=== PATIENT | male | born 1975 | race Caucasian/White ===

== ENCOUNTER 2021-08-04 21:52 | Emergency (ER) | payer OTHER, SELFPAY ==
[2021-08-04 21:56] VITALS: BP 136/86; PULSE 97; RESP 18; TEMP 36.7; O2SAT 96; BMI 27.2
--- NOTE | 2021-08-04 22:55 | ECG_ITS ---
[facility] Test Date: 2021-08-04 Pat Name: Ifeanyi Stephens Department: Room: Gender: Male Collections Associate: : 1975 Requested By: Moncho Huston Order Number: [id number] Fabiola MD: Taryn Villeda M.D. Measurements Intervals [place] Rate: 94 P: 53 HI: 157 QRS: 34 QRSD: 87 T: 39 QT: 350 QTc: 439 Interpretive Statements SINUS RHYTHM NONSPECIFIC T-WAVE ABNORMALITY No previous ECG available for comparison Electronically Signed On 08-06-2021 12:42:02 [employer]STRUCTION SALES MANAGER by Taryn Villeda M.D. [id number]
--- NOTE | 2021-08-04 22:55 | XRR_ITS ---
PROCEDURE INFORMATION: Exam: XR Chest Exam date and time: 08/04/2021 10:55 PM Age: 45 years old Clinical indication: Pain; Left-sided; Patient HX: C/O L sided cp radiating to lue TECHNIQUE: Imaging protocol: XR of the chest. Views: 1 view. Total images: 1 COMPARISON: No relevant prior studies available. FINDINGS: Lungs: No visible active interstitial or alveolar airspace disease. Pleural spaces: Unremarkable. No pleural effusion. No pneumothorax. Heart/Mediastinum: Cardiac structures and configuration within normal limits. Bones/joints: Unremarkable. XR/XR chest 1V portable [id number] IMPRESSION: Nonacute. Radiation Dose CTDIVOL = (mGy): DLP = (mGy-cm)
[2021-08-04 22:58] VITALS: RESP 18; O2SAT 98
[2021-08-04] MEDS: morphine 4 mg/mL SDV 1 mL IVP (22:58)
[2021-08-04] MEDS: ondansetron 2 mg/ML SDV 2 mL 4 MG IVP (22:58)
[2021-08-04] MEDS: sodium chloride 0.9% 1,000 ML 999 ML IV (23:02)
[2021-08-04 23:10] LABS: Basophils % 0.6 %; Eosinophils # 0.1 10^3/uL (0.0-0.8); Eosinophils % 1.7 %; Hemoglobin 15.7 g/dL (11.7-16.6); Lymphocytes # 2.6 10^3/uL (0.8-4.8); Lymphocytes % 36.8 %; Mean Corpuscular HGB Conc 33.4 g/dL (30.0-36.0); Mean Corpuscular Hemoglobin 26.1 pg (28.0-34.0); Mean Corpuscular Volume 78.2 fl (80-94); Mean Platelet Volume 11.9 fL (7.4-10.4); Monocytes # 0.9 10^3/uL (0.2-0.9); Monocytes % 12.8 %; Neutrophils # 3.31 10^3/uL (1.8-7.7); Neutrophils % 47.8 %; Nucleated Red Blood Cells % 0 %; Platelet Count 238 10^3/cmm (130-400); Red Blood Count 6.01 10^6/uL (4.1-5.3); Red Cell Distribution Width 13.3 % (12.1-15.1); White Blood Count 6.9 10^3/uL (4.0-10.0)
[2021-08-04 23:32] LABS: D Dimer <= 0.27 ug/mIFEU (0-0.59)
[2021-08-04 23:36] LABS: Troponin(5th) Baseline 7 ng/L (0-15)
[2021-08-04 23:36] LABS: Add Urine Microscopic? YES; Bilirubin Urine Neg (Negative); Blood Urine 2+ (Negative); Glucose Urine UA Norm (Normal); Ketones Urine 1+ (Negative); Leukocyte Esterase Urine Negative (Negative); Nitrate Urine Negative (Negative); Protein Urine Neg (Negative); Urine Appearance Clear (CLEAR); Urine Color Yellow (Yellow); Urobilinogen Urine Norm (Negative); pH Urine 5 (5-7)
--- NOTE | 2021-08-04 23:43 | W.ED.BACK ---
HPI - Back Pain/Injury General: Chief Complaint: Back Pain/Injury Stated Complaint: CP Time Seen by Provider: 08/04/21 21:58 History of Present Illness: HPI Narrative: 45-year-old male presenting with left-sided chest/flank pain. He notes he was sitting resting, when he had sudden onset of left-sided chest pain radiating into his left arm. The pain then migrated towards his left flank/kidney area. The patient has a history of kidney stones, but this feels different than a kidney stone to him. Pain was worsened upon inspiration. No history of cardiac disease. Does have a history of hypertension. Pain is improved after administration of pain medication in the ambulance. MD elicited complaint: back pain Pertinent past history: kidney stones and other Onset (ago): hour(s) Timing: constant Severity: moderate Similar Symptoms Previously: No Quality: sharp Location: left flank Radiation: other (Left upper extremity) Relieving factors: none Context: history of kidney stones Associated symptoms: Reports nausea; Deny abdominal pain, difficulty walking, dysuria, fever(s), hematuria, numbness or tingling/numbness/burning Review of Systems Const: Denies: fever(s) Card: Reports: chest pain; Denies: palpitations Resp: Denies: dyspnea, productive cough or non-productive cough GI: Reports: nausea; Denies: abdominal pain : Denies: dysuria or hematuria Neuro: Denies: difficulty walking Physical Exam Const: COMMON NORMALS: no acute distress, patient oriented x3 and alert GENERAL APPEARANCE: cooperative HENMT: COMMON NORMALS: normocephalic HEAD & SCALP: normocephalic Eye: COMMON NORMALS: Equal, round and reactive pupils present and EOMs intact bilaterally PUPIL: Yes Equal, round and reactive pupils present Chest: COMMONS NORMALS: normal inspection of the chest Resp: COMMON NORMALS: normal respiratory effort, No use of accessory muscles and clear to auscultation bilaterally AUSCULTATION: clear to auscultation bilaterally Cardio: COMMON NORMALS: regular rate and regular rhythm RATE: regular rate RHYTHM: regular rhythm GI: COMMON NORMALS: Normal to inspection, nondistended, normoactive bowel sounds present and Soft to palpation PALPATION: Yes Soft to palpation Neuro: COMMON NORMALS: patient oriented x3 SENSORIUM/ORIENTATION: Yes alert Course Vital Signs: Vital signs: Vital Signs Temperature 98.1 F 08/04/21 21:56 Pulse Rate 97 08/04/21 21:56 Respiratory Rate 18 08/04/21 22:58 Blood Pressure 136/86 08/04/21 21:56 Pulse Oximetry 98 08/04/21 22:58 MDM - Back Pain/Injury MDM Narrative: Medical decision making narrative: 45-year-old male with left flank pain. It started in his chest. EKG shows a normal sinus rhythm with no acute ST changes. Normal intervals and axis. CBC is normal. Creatinine is 1.5. BMP is otherwise normal. Troponin is 7. D-dimer is nondetectable. Hematuria is present. CT renal stone of the abdomen pelvis shows multiple left renal stones, no hydronephrosis or ureteral stone. There is some bilateral fat stranding around the kidneys. No evidence of infection on urinalysis. His pain is much improved. I would favor a passed stone at the top of my differential. Lab Data: Labs: Lab Results 08/04/21 08/04/21 08/04/21 22:10 22:10 22:10 WBC 6.9 10^3/uL 10^3/ uL (4.0-10.0) RBC 6.01 10^6/uL H 10 ^6/uL (4.1-5.3) Hgb 15.7 g/dL g/dL (11.7-16.6) Hct 47.0 % % (42.0-52.0) MCV 78.2 fl L fl (80-94) MCH 26.1 pg L pg (28.0-34.0) MCHC 33.4 g/dL g/dL (30.0-36.0) RDW 13.3 % % (12.1-15.1) Plt Count 238 10^3/cmm 10^3 /cmm (130-400) MPV 11.9 fL H fL (7.4-10.4) Neut % (Auto) 47.8 % % Lymph % (Auto) 36.8 % % [place] % (Auto) 12.8 % % Eos % (Auto) 1.7 % % Baso % (Auto) 0.6 % % Neut # (Auto) 3.31 10^3/uL 10^3 /uL (1.8-7.7) Lymph # (Auto) 2.6 10^3/uL 10^3/ uL (0.8-4.8) [place] # (Auto) 0.9 10^3/uL 10^3/ uL (0.2-0.9) Eos # (Auto) 0.1 10^3/uL 10^3/ uL (0.0-0.8) Baso # (Auto) 0.0 10^3/uL 10^3/ uL (0.0-0.1) Nucleated RBC % (a uto) 0 % % Nucleated RBCs # 0.0 /100WBC /100W BC D-Dimer <= 0.27 ug/mIFEU ug/mIFEU (0-0.59) Sodium 142 mmol/L mmol/L (136-145) Potassium 3.5 mmol/L mmol/L (3.5-5.1) Chloride 104 mmol/L mmol/L (98-107) Carbon Dioxide 24 mmol/L mmol/L (22-29) Anion Gap 17.5 (5-19) BUN 16 mg/dL mg/dL (6-20) Creatinine 1.5 mg/dL H mg/dL (0.7-1.2) GFR Calculation 50.6 mL/min L mL/ min (90-130) Glucose 110 mg/dL mg/dL (65-115) Calculated Osmolal ity 296 mOsm/kg H mOs m/kg (285-295) Calcium 9.1 mg/dL mg/dL (8.5-10.5) Total Bilirubin 0.2 mg/dL mg/dL (0.15-1.2) AST 34 U/L U/L (0-40) ALT 60 U/L H U/L (0-41) Alkaline Phosphata se 60 IU/L IU/L (40-130) Creatine Kinase 73 U/L U/L (39-308) Troponin T Baselin e NT-Pro-B Natriuret Pep 8 pg/mL pg/mL (0-125) Total Protein 7.0 g/dL g/dL (6.6-8.7) Albumin 4.1 g/dL g/dL (3.5-5.2) Globulin 2.9 g/dL g/dL (1.3-4.6) Lipase 75 U/L H U/L (13-60) Urine Color Urine Appearance Urine pH Ur Specific Gravit y Urine Protein Urine Glucose (UA) Urine Ketones Urine Blood Urine Nitrate Urine Bilirubin Urine Urobilinogen Ur Leukocyte Haylie ase Urine RBC Urine WBC Ur Squamous Epith Cells Amorphous Sediment Urine Bacteria Ethyl Alcohol < 10 mg/dL mg/dL (0-10) 08/04/21 08/04/21 22:10 22:40 WBC RBC Hgb Hct MCV MCH MCHC RDW Plt Count MPV Neut % (Auto) Lymph % (Auto) [place] % (Auto) Eos % (Auto) Baso % (Auto) Neut # (Auto) Lymph # (Auto) [place] # (Auto) Eos # (Auto) Baso # (Auto) Nucleated RBC % (a uto) Nucleated RBCs # D-Dimer Sodium Potassium Chloride Carbon Dioxide Anion Gap BUN Creatinine GFR Calculation Glucose Calculated Osmolal ity Calcium Total Bilirubin AST ALT Alkaline Phosphata se Creatine Kinase Troponin T Baselin e 7 ng/L ng/L (0-15) NT-Pro-B Natriuret Pep Total Protein Albumin Globulin Lipase Urine Color Yellow (Yellow) Urine Appearance Clear (CLEAR) Urine pH 5 (5-7) Ur Specific Gravit y 1.020 (1.005-1.030) Urine Protein Neg (Negative) Urine Glucose (UA) Norm (Normal) Urine Ketones 1+ H (Negative) Urine Blood 2+ H (Negative) Urine Nitrate Negative (Negative) Urine Bilirubin Neg (Negative) Urine Urobilinogen Norm mg/dL mg/dL (Negative) Ur Leukocyte Haylie ase Negative (Negative) Urine RBC 10-15 /hpf H /hpf (0-2) Urine WBC 0-4 /hpf H /hpf (0-5) Ur Squamous Epith Cells 0-4 /hpf H /hpf (0-5) Amorphous Sediment Not Reportable Urine Bacteria Trace /hpf /hpf (NONE) Ethyl Alcohol Discharge Plan Discharge Patient Disposition: Home Clinical Impression: Renal colic Condition: Stable Discharge Orders: Discharge ED (Routine); Ordered 08/05/21 Ordered By: Moncho De La Rosa Discharge Diet: Advance as tolerated Discharge Activity: Increase activity as tolerated Patient Instructions: Renal Colic (ED), Opioid Safety Activity Restrictions/Additional Instructions: Return for return of or worsening pain, shortness of breath, pain to the chest, fever greater than 100, vomiting liquids or medications, any other concerning symptoms. Coding Level of Care Code ED Inside Meter Tester for Chg Fwd Exam Detailed
[2021-08-04 23:45] LABS: Alanine Aminotransferase 60 U/L (0-41); Albumin Level 4.1 g/dL (3.5-5.2); Alkaline Phosphatase 60 IU/L (40-130); Anion Gap 17.5 (5-19); Aspartate Amino Transferase 34 U/L (0-40); Blood Urea Nitrogen 16 mg/dL (6-20); Calcium 9.1 mg/dL (8.5-10.5); Carbon Dioxide 24 mmol/L (22-29); Chloride 104 mmol/L (98-107); Creatine Phosphokinase 73 U/L (39-308); Globulin 2.9 g/dL (1.3-4.6); Glomerular Filtration Rate 50.6 mL/min (90-130); Glucose 110 mg/dL (65-115); Lipase 75 U/L (13-60); NT Pro B Type Natriuretic Pept 8 pg/mL (0-125); Osmolality Calculated 296 mOsm/kg (285-295); Potassium 3.5 mmol/L (3.5-5.1); Sodium 142 mmol/L (136-145); Total Bilirubin 0.2 mg/dL (0.15-1.2)
[2021-08-04 23:46] LABS: Add Urine Culture? Yes; Bacteria Urine TRACE /hpf; Squamous Epithelial Cell Urine 0-4 /hpf (0-5); WBC Urine 0-4 /hpf (0-5)
[2021-08-04 23:47] LABS: Alcohol Level < 10 mg/dL (0-10)
--- NOTE | 2021-08-04 23:49 | CTR_ITS ---
PROCEDURE INFORMATION: Exam: CT Abdomen And Pelvis Without Contrast Exam date and time: 08/04/2021 11:49 PM Age: 45 years old Clinical indication: Abdominal pain; Left; Patient HX: C/O L flank pain with stated HX of stones TECHNIQUE: Imaging protocol: Computed tomography of the abdomen and pelvis without contrast. Radiation optimization: All CT scans at this facility use at least one of these dose optimization techniques: automated exposure control; mA and/or kV adjustment per patient size (includes targeted exams where dose is matched to clinical indication); or iterative reconstruction. COMPARISON: CR XR chest 1V portable [id number] 08/04/2021 11:03 PM RADIATION DOSE METRICS: Total DLP (mGy-cm): 1554.76 FINDINGS: Lungs: The lung bases are clear. Liver: Unremarkable. Gallbladder and bile ducts: No definite gallbladder abnormality by CT. No biliary tree dilation. Pancreas: Unremarkable. Spleen: Unremarkable. Adrenal glands: Unremarkable. Kidneys and ureters: Several intrarenal calculi bilaterally, more numerous on the left. No hydronephrosis of either kidney. No visible ureteral calculus. Mild perinephric stranding bilaterally. This is a nonspecific appearance and could well be chronic. Possibility of pyelonephritis is not excluded, please correlate clinically. Stomach and bowel: The stomach appears somewhat distended at the time of scanning. Please correlate clinically. 15 mm duodenal diverticulum. No significant bowel distention. There are no CT findings to strongly suggest diverticulitis. Appendix: The appendix is visualized and appears normal. Intraperitoneal space: No free intraperitoneal air, or ascites. Vasculature: No evidence for abdominal aortic aneurysm. Lymph nodes: No retroperitoneal adenopathy. Urinary bladder: The urinary bladder appears essentially unremarkable by CT. Reproductive: Essentially unremarkable for age. Bones/joints: No significant acute finding. Soft tissues: Very small umbilical hernia, containing only fat. CT/CT kidney stone [id number] IMPRESSION: 1. Bilateral intrarenal calculi. No hydronephrosis of either kidney. No visible ureteral calculus. 2. Mild perinephric stranding bilaterally, see above discussion. 3. Somewhat distended stomach. 4. No diverticulitis. 5. Normal appendix. 6. No free air or bowel distention. 7. Other findings discussed above. Radiation Dose CTDIVOL = (mGy): DLP = 1554.76 (mGy-cm)
[2021-08-04] MEDS: HYDROmorphone 1 mg/mL INJ 1 mL IVP (23:54)
[2021-08-05 01:32] VITALS: BP 129/80; PULSE 87; RESP 18; O2SAT 98
[2021-08-05 02:11] LABS: Troponin 5 2HR 7.17 ng/L (0-15); Troponin 5 2HR Delta 0.17 ABS# (0-10)
[2021-08-05] MEDS: ondansetron 4 MG Tablet 8 MG PO (02:12)
[2021-08-05] MEDS: oxyCODONE-APAP 5-325 mg Tablet 2 TAB PO (02:13)
[2021-08-05 02:33] VITALS: BP 144/77; PULSE 78; RESP 18; O2SAT 99
== END 2021-08-05 02:25 | disposition home or self-care (01) ==
PROVIDERS: Emergency Provider Emergency Medicine
DX: N23 Unspecified renal colic (principal)
CPT/HCPCS: 71045; 74176; 80053; 80307; 81001; 82550; 83690; 83880; 84484; 85025; 85378; 87086; 93005; 96361; 96374; 96375; 99284; J1170; J2270; J2405; J7030; Q0162